=== PATIENT | female | born 1970 | race Two or more races ===

== ENCOUNTER 2021-11-07 06:53 | Outpatient (CLI) | payer MEDICARE, BC | END 2021-11-07 23:59 | disposition home or self-care (01) | LOC: LAB 06:53 | PROVIDERS: ATTEND Surgery | DX: Z01.812 Encounter for preprocedural laboratory examination (principal); Z20.822 Contact with and (suspected) exposure to COVID-19 ==

== ENCOUNTER 2021-11-10 07:44 | Day surgery (SDC) | payer MEDICARE, BC ==
[2021-11-10] MEDS ORDERED: PROPOFOL 200 MG/20 ML BOTTLE IV ONE (07:45)
[2021-11-10] MEDS ORDERED: LIDOCAINE-MPF 2% 5 ML VIAL IJ ONE (07:45)
[2021-11-10 08:23] LABS: HEMATOCRIT 38.6 % (31.2-41.9); MEAN CORPUSCULAR HEMOGLOBIN 29.9 uug (24.7-32.8); MEAN CORPUSCULAR VOLUME 89.8 fL (75.5-95.3); PLATELET COUNT (AUTO) 211 K/uL (179-408)
[2021-11-10 08:26] LABS: *BILIRUBIN,URIN 1+ (NEGATIVE); *CLARITY,URINE CLEAR (CLEAR); *COLOR,URINE YELLOW (YELLOW); *KETONES,URINE NEGATIVE (NEGATIVE); *UROBILINOGEN,URINE 0.2 E.U./dl (NORMAL); LEUKOCYTE ESTERASE ,URINE NEGATIVE (NEGATIVE); NITRITE, URINE NEGATIVE (NEGATIVE); UGLUCOSE NEGATIVE (NEGATIVE)
[2021-11-10 08:29] LABS: *BLOOD, URINE TRACE (NEGATIVE)
[2021-11-10 08:30] LABS: *URINE HCG, QUAL NEGATIVE (NEGATIVE); CREATININE 0.9 mg/dL (0.6-1.3); POTASSIUM 3.5 mmol/L (3.5-5.1)
[2021-11-10 08:34] LABS: RBC,URINE 0-3 /HPF (0-3); WBC,URINE 0-3 /HPF (0-3)
[2021-11-10 08:35] LABS: BACTERIA,URINE NONE SEEN /HPF (NONE SEEN); SQUAMOUS EPITHELIAL CELL,UR FEW /HPF (NONE SEEN)
== END 2021-11-10 11:35 | disposition home or self-care (01) ==
LOC: DS 07:44
PROVIDERS: ATTEND Surgery
DX: R19.4 Change in bowel habit (principal); R10.13 Epigastric pain; K21.9 Gastro-esophageal reflux disease without esophagitis; K44.9 Diaphragmatic hernia without obstruction or gangrene; K29.50 Unspecified chronic gastritis without bleeding; K63.5 Polyp of colon; K29.80 Duodenitis without bleeding; K63.89 Other specified diseases of intestine; K31.89 Other diseases of stomach and duodenum; K64.8 Other hemorrhoids; Z87.440 Personal history of urinary (tract) infections; Z79.899 Other long term (current) drug therapy; Z98.890 Other specified postprocedural states; Z88.6 Allergy status to analgesic agent; Z88.8 Allergy status to other drugs, medicaments and biological substances
CPT/HCPCS: 45380; 43239; 71045; 80048; 81001; 84703; 85025; 85730; 36415; J3490; J7120; A4663